=== PATIENT | female | born 1985 | race Caucasian/White ===

== ENCOUNTER 2021-07-03 06:12 | Inpatient (IN) | payer OTHER ==
[~2021-07-03] VITALS: Ht 162.6 cm; Wt 93.6 kg
[~2021-07-03 06:12] MED LIST: IBUP-1222 PO
[2021-07-03 06:15] VITALS: BP 123/78
[2021-07-03] MEDS ORDERED: TERBUTALINE 1 MG/ML, 1ML IVPush PRN (06:30)
[2021-07-03] MEDS ORDERED: FENTANYL PF 100 MCG/2ML IV PRN (06:30)
[2021-07-03] MEDS ORDERED: OXYTOCIN 30U/ 0.9% NaCL 500ML 500 ML IV ONE (06:30)
[2021-07-03] MEDS ORDERED: TERBUTALINE 1 MG/ML, 1ML SQ PRN (06:30)
[2021-07-03] MEDS ORDERED: PLEASE ENTER HEIGHT AND WEIGHT MC SCH (06:30)
[2021-07-03] MEDS ORDERED: CALCIUM CARBONATE 500 MG TAB.CHEW PO PRN (06:30)
[2021-07-03] MEDS ORDERED: ONDANSETRON 2MG/ML, 2ML IVPush PRN (06:30)
[2021-07-03] MEDS ORDERED: FENTANYL PF 100 MCG/2ML IVPush PRN (06:30)
[2021-07-03] MEDS ORDERED: D5%-LACTATED RINGERS 1,000 ML IV SCH (06:30)
[2021-07-03 06:47] LABS: BASOPHILS % (AUTO) 1 % (0-1); EOSINOPHILS % (AUTO) 2 % (1-7); LYMPHOCYTES % (AUTO) 23 % (22-44); MEAN CORPUSCULAR HEMOGLOBIN 31.6 pg (27.0-34.8); MEAN CORPUSCULAR HGB CONC 33.5 g/dL (32.4-35.8); MEAN PLATELET VOLUME 10.1 fL (7.4-10.4); MONOCYTES % (AUTO) 6 % (2-9); NEUTROPHILS % (AUTO) 68 % (42-75); PLATELET COUNT 149 x10^3/uL (130-400); RED BLOOD COUNT 4.03 x10^6/uL (3.82-5.3); RED CELL DISTRIBUTION WIDTH 13.3 % (9.6-15.2)
[2021-07-03] MEDS ORDERED: MISOPROSTOL 200 MCG TABLET ONE (07:02)
[2021-07-03] MEDS ORDERED: NEWBORN KIT ONE (07:02)
[2021-07-03] MEDS ORDERED: LIDOCAINE 1%, 20ML ONE (07:02)
[2021-07-03] MEDS ORDERED: OXYTOCIN 30U/ 0.9% NaCL 500ML 500 ML ONE (07:03)
[2021-07-03] MEDS ORDERED: OXYTOCIN 30U/ 0.9% NaCL 500ML 500 ML IV PRN (07:30)
[2021-07-03] MEDS: LACTATED RINGERS 1,000 ML IV SCH ×2 (07:39→10:44)
[2021-07-03] MEDS ORDERED: FENTANYL/BUPIV./NS/PF 250 ML EPIDCONT SCH ×2 (08:00→10:00)
[2021-07-03] MEDS ORDERED: LACTATED RINGERS 1,000 ML IVBOLUS PRN ×2 (08:00→10:00)
[2021-07-03] MEDS ORDERED: FENTANYL PF 500 MCG, BUPIVACAINE/PF 0.5%, 30ML 62.5 ML in SODIUM CHLORIDE 0.9% 177.5 ML EPIDCONT SCH (08:30)
[2021-07-03] MEDS ORDERED: BUPIVACAINE 0.25% ONE (09:54)
[2021-07-03] MEDS ORDERED: LACTATED RINGERS 1,000 ML IV SCH (10:00)
[2021-07-03] MEDS ORDERED: NALOXONE 0.4 MG/ML, 1ML IVPush PRN (10:00)
[2021-07-03] MEDS ORDERED: EPHEDRINE 50 MG/ML, 1ML IVPush PRN (10:00)
[2021-07-03] MEDS ORDERED: IBUPROFEN 600 MG TABLET PO PRN (14:30)
[2021-07-03] MEDS ORDERED: SIMETHICONE 80 MG CHEW TAB PO PRN (14:30)
[2021-07-03] MEDS ORDERED: TRANEXAMIC ACID 1,000 MG in SODIUM CHLORIDE 0.9% 100 ML IVPB ONE (14:30)
[2021-07-03] MEDS ORDERED: METHYLERGONOVINE 0.2 MG/ML IM PRN (14:30)
[2021-07-03] MEDS ORDERED: METOCLOPRAMIDE 5 MG/ML, 2ML IV PRN (14:30)
[2021-07-03] MEDS ORDERED: GLYCERIN ADULT SUPP PR PRN (14:30)
[2021-07-03] MEDS ORDERED: ACETAMINOPHEN 325 MG TABLET PO PRN (14:30)
[2021-07-03] MEDS: OXYTOCIN 30U/ 0.9% NaCL 500ML 500 ML IV SCH (14:30)
[2021-07-03] MEDS ORDERED: OXYcodone IR 5MG TABLET PO PRN (14:30)
[2021-07-03] MEDS ORDERED: DOCUSATE 100 MG CAPSULE PO PRN (14:30)
[2021-07-03] MEDS ORDERED: CARBOPROST TROMETHAMINE 250 MCG/ML, 1ML IM PRN (14:30)
[2021-07-03] MEDS ORDERED: MISOPROSTOL 200 MCG TABLET PO PRN (14:30)
[2021-07-03] MEDS ORDERED: ONDANSETRON 2MG/ML, 2ML IV PRN (14:30)
[2021-07-03] MEDS ORDERED: BISACODYL 10 MG SUPP PR PRN (14:30)
[2021-07-03] MEDS ORDERED: OXYcodone/APAP 5/325MG TABLET PO PRN (14:30)
[2021-07-03 16:20] VITALS: BP 104/68
[2021-07-03 19:20] VITALS: BP 115/76
[2021-07-03 22:31] LABS: BASOPHILS % (AUTO) 0 % (0-1); EOSINOPHILS % (AUTO) 1 % (1-7); LYMPHOCYTES % (AUTO) 14 % (22-44); MEAN CORPUSCULAR HGB CONC 33.9 g/dL (32.4-35.8); MEAN PLATELET VOLUME 10.3 fL (7.4-10.4); MONOCYTES % (AUTO) 6 % (2-9); NEUTROPHILS % (AUTO) 79 % (42-75); PLATELET COUNT 126 x10^3/uL (130-400); RED BLOOD COUNT 3.55 x10^6/uL (3.82-5.3); RED CELL DISTRIBUTION WIDTH 13.2 % (9.6-15.2)
[2021-07-04 00:46] VITALS: BP 106/71
[2021-07-04] MEDS: OXYTOCIN 30U/ 0.9% NaCL 500ML 500 ML IV SCH (00:50)
[2021-07-04 05:15] VITALS: BP 103/72
[2021-07-04 08:00] VITALS: BP 118/84
[2021-07-04] MEDS ORDERED: PRENATAL VIT/IRON/FA 1 EACH TABLET PO SCH (09:00)
[2021-07-04] MEDS ORDERED: IBUP-1222 PO (09:40)
== END 2021-07-04 13:30 | disposition home or self-care (01) | DRG 807 ==
LOC: LDIP 06:12 → 2NW 16:10
PROVIDERS: ADMIT Student in an Organized Health Care Education/Training Program; ATTEND Student in an Organized Health Care Education/Training Program
PROC: 0HQ9XZZ Repair Perineum Skin, External Approach (ICD-10-PCS; principal; 2021-07-03)
PROC: 10E0XZZ Delivery of Products of Conception, External Approach (ICD-10-PCS; 2021-07-03)
PROC: 10907ZC Drainage of Amniotic Fluid, Therapeutic from Products of Conception, Via Natural or Artificial Opening (ICD-10-PCS; 2021-07-03)
PROC: 3E033VJ Introduction of Other Hormone into Peripheral Vein, Percutaneous Approach (ICD-10-PCS; 2021-07-03)
PROC: 3E0R3BZ Introduction of Anesthetic Agent into Spinal Canal, Percutaneous Approach (ICD-10-PCS; 2021-07-03)
PROC: 00HU33Z Insertion of Infusion Device into Spinal Canal, Percutaneous Approach (ICD-10-PCS; 2021-07-03)
DX: O70.0 First degree perineal laceration during delivery (principal); Z37.0 Single live birth; Z3A.39 39 weeks gestation of pregnancy; Z82.49 Family history of ischemic heart disease and other diseases of the circulatory system; Z83.3 Family history of diabetes mellitus
CPT/HCPCS: 36415; 85025; 86592; 86850; 86900; 87635; G0378; J3010; J2590; J7120